=== PATIENT | male | born 1985 | race Caucasian/White ===

== ENCOUNTER 2016-07-17 16:48 | Emergency (ER) | payer BC ==
[~2016-07-17] VITALS: Ht 182.9 cm; Wt 90.6 kg
[2016-07-17 17:40] VITALS: BP 153/106
[2016-07-17] MEDS ORDERED: EPIPEN ADU0.3 MG/0.3 IM (18:13)
== END 2016-07-17 18:47 | disposition home or self-care (01) ==
LOC: EME 16:48
DX: T63.441A Toxic effect of venom of bees, accidental (unintentional), initial encounter (principal); L50.9 Urticaria, unspecified; R11.10 Vomiting, unspecified
CPT/HCPCS: 99281; 99283; J7512